=== PATIENT | male | born 1965 | race Caucasian/White ===

== ENCOUNTER 2017-10-12 15:21 | Emergency (ER) | payer MEDICAID ==
[2017-10-12 15:28] VITALS: BMI 33.1
--- NOTE | 2017-10-12 15:44 | DR.WEAKNES ---
HPI - Time Seen Time seen: 15:50 - Primary Care Physician Primary Care Physician: DAVID - HPI Comment HPI Comment: PATIENTS NOTICE RT FACIAL WEAKNESS YESTERDAY. TODAY WEAKNESS IS WORSE. BP ELEVATED. HE DOES NOT TAKE MEDICATIONS. PATIENT HAVE OCCIPITAL HEADACHE GOING DOWN THE NECK SINCE THIS AM. - Complaints Chief Complaint Doctors Comments: RIGHT FACIAL WEAKNESS TIMES ONE DAY. BP ELEVATED. Chief Complaint:: THINKS I HAD A STOKE YESTERDAY 01/10/18, PT STATES "MY FACE WAS DROPPING ON RIGHT SIDE." DENIES WEAKNES TO ANY EXTREMITIES ONLY THE FACIAL DROOPING. PT HAS NOT SEEN A DOCTOR SINCE [facility]. - Reviewed Nurses Notes Reviewed: Yes - Source History Provided: Patient - Mode of Arrival Mode of Arrival: Ambulatory - Timing Onset of Chief Complaint: 10/11/17 Since onset, symptoms are:: Worsened Symptom Onset: Unknown Onset of Symptoms Start Date: 10/11/17 - Duration Duration: Constant Duration: Days - Context Onset: At rest Symptoms: Weakness, Numbness, Diplopia. denies: Slurred Speech, Visual loss, Difficulty talking, Difficulty walking History of: None Stroke Symptoms: None - Location Weakness Location: Normal - Associated Signs and Symptoms Associated Signs and Symptoms: None PMH - PMH Past Medical History: Yes Past Medical History: Hypertension Past Surgical History: Yes Surgical History: Other Past Surgical History Comment: EXPLORATORY OF ABDOMEN - Family History History of Family Medical Conditions: Yes Family Medical History: Cancer, CT, Hypertension - Social History Does patient currently use any type of tobacco product: Yes Have you used tobacco products in the last 12 months: Yes Type of Tobacco Use: Cigarettes How many years tobacco product used: 30 Does any household member use tobacco: Yes Alcohol Use: None Do you use any recreational Drugs:: No Lives With: Family Lives Where: Home - infectious screening In the last 2 months have you had wt loss of >10#?: NO Have you had fever, night sweats or hemotysis?: No Have you traveled outside the country in the last 6 months?: No Isolation: Standard ROS - Review of Systems Constitutional: Fever, Weakness (RIGHT FACE). negative: Chills, Diaphoresis, Fatigue, Loss of Appetite Eyes: Diplopia (RT EYE). negative: Eye Pain, Discharge ENTM: negative: Ear Pain, Nose Discharge, Nose Congestion, Throat Pain Respiratoy: negative: Productive Cough, Non-Productive Cough, Short of Breath, Wheezing, Hemoptysis Cardiovascular: negative: Chest Pain Gastrointestinal/Abdominal: No Symptoms Reported Genitourinary: No Symptoms Reported Neurological: No Symptoms Reported Musculoskeletal: No Symptoms Reported Integumentary: No Symptoms Reported Hematologic/Lymphatic: No Symptoms Reported Endocrine: No Symptoms Reported All Other Systems: Reviewed and Negative PE - Vital Signs Vitals: Temperature 99.7 F Pulse Rate [Right Brachial] 71 Pulse Rate 77 Respiratory Rate 20 Blood Pressure [Right Arm] 178/68 Blood Pressure 230/115 O2 Sat by Pulse Oximetry 96 - General Limitations: No Limitations General Appearance: Alert - Head Head Exam: Normal Inspection Head Exam Physical: Other (NONE) - Eyes Eye exam: PERRL, Other (RIGHT EYE WEAKNESS). negative: Scleral Icterus, Conjunctival Injection, Nystagmus, Periorbital Swelling, Periorbital Tenderness Eyelids: Normal Inspection: Bilateral Pupils: Regular, Round: Bilateral, Reactive: Bilateral Sclera/Conjunctival: Normal Inspection: Bilateral - ENT ENT Exam: Normal External Ear Exam Mouth Exam: Drooling (RT) Throat Exam: Normal Inspection (GAG POSITIVE) - Neck Neck Exam: Trachea Midline. negative: Tenderness, Meningismus, Lymphadenopathy - Chest Chest Inspection: Symmetric Chest Wall Rise, Tenderness - Respiratory Respiratory Exam: Normal Lung Sounds Bilat Respiratory Exam: Bilateral Clear to Auscultation - Cardiovascular Cardiovascular Exam: Regular Rate, Normal Rhythm, Normal Heart Sounds - Abdominal Exam Abdominal Exam: Normal Bowel Sounds, Soft. negative: Tenderness - Extremities Extremities Exam: Normal Inspection, Edema (TRACE). negative: Calf Tenderness - Back Back Exam: Normal Inspection - Neurologic Neurological Exam: Alert, Oriented X3 Cranial Nerve Exam: EOM Function (II, III, IV, ): Normal, Facial Sensation (V) : Normal, Facial Palsy (VII): Normal, Gag reflex (XI): Normal, Spinal Accessory Function (XI): Normal, Tongue Deviation: Normal Motor Strength - LUE: 5/5 Motor Strength - RUE: 5/5 Motor Strength - LLE: 5/5 Motor Strength - RLE: 5/5 Upper Motor Neuron Exam: Babinski Sign: Normal DTR: achilles tendon (L): 4+, achilles tendon (R): 4+, brachioradialis (L): 4+, brachioradialis (R): 4+, Patellar (L): 4+, patellar (R): 4+ - Psychiatric Psychiatric Exam: Normal Affect, Normal Mood - Skin Skin Exam: Normal Color MDM - Additional Information Obtained Additional Information Obtained From: Family - Differential Diagnosis Differential Diagnosis: Moran's Palsey, CVA, Electrolyte Disorder, Mass Lesion, TIA Differential Diagnosis Comment: OCCIPITAL HEADACHE. Course - Treatment Treatment: SEE ORDERS. PATIENT DO NOT WISH TO BE ADMITTED TO HOSPITAL FOR FURTHER MANAGEMENT. D/C AMA. - Education/Counseling Education/Counseling: Patient, Family, Education Educated On: Diagnosis, Needs for Follow Up ROR - Labs Reviewed Laboratory Results Reviewed?: Yes Result Diagrams: 10/12/17 15:54 10/12/17 15:54 Laboratory: WBC 6.4 X10^3/uL (3.6-10.0) 10/12/17 15:54 RBC 5.33 X10^6/uL (4.7-6.0) 10/12/17 15:54 Hgb 13.8 g/dL (13.5-18.0) 10/12/17 15:54 Hct 41.9 % (42.0-54.0) L 10/12/17 15:54 MCV 78.5 fL (80.0-100.0) L 10/12/17 15:54 MCH 25.9 pg (27.0-34.0) L 10/12/17 15:54 MCHC 33.0 g/dL (33.0-35.0) 10/12/17 15:54 RDW 16.0 % (11.6-16.5) 10/12/17 15:54 Plt Count 135 X10^3/uL (150.0-450.0) L 10/12/17 15:54 Plt Count Comment Adequate (ADEQUATE) 10/12/17 15:54 MPV 9.9 fL (7.4-11.0) 10/12/17 15:54 Neut % (Auto) 61.5 % (42.0-75.0) 10/12/17 15:54 Lymph % (Auto) 27.4 % (21.0-51.0) 10/12/17 15:54 Dixon % (Auto) 6.2 % (0.0-13.0) 10/12/17 15:54 Eos % (Auto) 2.7 % (0.9-2.9) 10/12/17 15:54 Baso % (Auto) 2.2 % (0.2-1.0) H 10/12/17 15:54 Neut # (Auto) 3.9 x10^3/uL (2.2-4.8) 10/12/17 15:54 Lymph # (Auto) 1.8 X10^3/uL (1.3-2.9) 10/12/17 15:54 Dixon # (Auto) 0.4 x10^3/uL (0.3-0.8) 10/12/17 15:54 Eos # (Auto) 0.2 x10^3/uL (0.0-0.2) 10/12/17 15:54 Baso # (Auto) 0.1 X10^3/uL (0.0-0.1) 10/12/17 15:54 Absolute Nucleated RBC 0.1 /100WBC 10/12/17 15:54 Plt Morphology Comment Normal (NORMAL) 10/12/17 15:54 RBC Morphology Abnormal (NORMAL) 10/12/17 15:54 Hypochromasia Slight A 10/12/17 15:54 Poikilocytosis Slight A 10/12/17 15:54 INR Target Range - 10/12/17 15:54 INR 0.98 (0.8-1.3) 10/12/17 15:54 APTT 36.7 SECONDS (22.9-36.5) H 10/12/17 15:54 PTT Comment - 10/12/17 15:54 Sodium 144 mmol/L (136-145) 10/12/17 15:54 Corrected Sodium TNP 10/12/17 15:54 Potassium 4.0 mmol/L (3.5-5.1) 10/12/17 15:54 Chloride 107 mmol/L (98-107) 10/12/17 15:54 Carbon Dioxide 28.4 mmol/L (21-32) 10/12/17 15:54 BUN 32 mg/dL (7-18) H 10/12/17 15:54 Creatinine 1.66 mg/dL (0.70-1.30) H 10/12/17 15:54 Est GFR (MDRD) Af Amer 56 (>60) L 10/12/17 15:54 Est GFR (MDRD) Non-Af 47 (>60) L 10/12/17 15:54 Glucose 87 mg/dL (65-99) 10/12/17 15:54 Calcium 8.5 mg/dL (8.5-10.1) 10/12/17 15:54 Corrected Calcium TNP 10/12/17 15:54 Magnesium 2.5 mg/dL (1.7-2.9) 10/12/17 15:54 Total Bilirubin 0.20 mg/dL (0.2-1.0) 10/12/17 15:54 AST 20 Units/L (15-37) 10/12/17 15:54 ALT 15 Units/L (12-78) 10/12/17 15:54 Alkaline Phosphatase 69 Units/L (46-116) 10/12/17 15:54 Creatine Kinase 233 Units/L (39-308) 10/12/17 15:54 CK-MB (CK-2) 3.3 ng/mL (0-4.0) 10/12/17 15:54 CK/CKMB % Calc 1.4 % (<4) 10/12/17 15:54 Troponin I 0.08 ng/mL (0-1.5) 10/12/17 15:54 Total Protein 7.8 g/dL (6.4-8.2) 10/12/17 15:54 Albumin 4.0 g/dL (3.4-5.0) 10/12/17 15:54 Globulin 3.8 g/dL (2.5-4.5) 10/12/17 15:54 Albumin/Globulin Ratio 1.1 Ratio (1.1-2.1) 10/12/17 15:54 Triglycerides 176 mg/dL (0-150) H 10/12/17 15:54 Cholesterol 207 mg/dL (0-200) H 10/12/17 15:54 LDL Cholesterol, Calc 142 mg/dL (0-100) H 10/12/17 15:54 HDL Cholesterol 30 mg/dL (40-60) L 10/12/17 15:54 Cholesterol/HDL Ratio 6.9 (0.0-5.0) H 10/12/17 15:54 Specimen Type Clean catch urine 10/12/17 17:18 Urine Color Yellow (YELLOW) 10/12/17 17:18 Urine Appearance Clear (CLEAR) 10/12/17 17:18 Urine pH 7.0 (5.0 - 8.0) 10/12/17 17:18 Ur Specific [place] 1.010 (1.000-1.030) 10/12/17 17:18 Urine Protein 2+ (NEGATIVE) 10/12/17 17:18 Urine Glucose (UA) Negative (NEGATIVE) 10/12/17 17:18 Urine Ketones Negative (NEGATIVE) 10/12/17 17:18 Urine Occult Blood 1+ (NEGATIVE) 10/12/17 17:18 Urine Nitrite Negative (NEGATIVE) 10/12/17 17:18 Urine Bilirubin Negative (NEGATIVE) 10/12/17 17:18 Urine Urobilinogen Normal (NORMAL) 10/12/17 17:18 Ur Leukocyte Esterase Negative (NEGATIVE) 10/12/17 17:18 Urine RBC 0-2 /HPF (NONE SEEN) 10/12/17 17:18 Urine WBC None seen /HPF (NONE SEEN) 10/12/17 17:18 Ur Squamous Epith Cells Negative /HPF (NEGATIVE) 10/12/17 17:18 Amorphous Sediment Trace /HPF (NEGATIVE) 10/12/17 17:18 Urine Bacteria Trace /HPF (NEGATIVE) 10/12/17 17:18 Ur Culture Indicated? No/not indicated 10/12/17 17:18 - XRAY XRAY Interpreted by: Radiologist XRAY Findings: REPORT DISCUSS WITH PATIENT. - Diagnosis Discharge Problem: Facial weakness, Abnormal cardiac enzyme level, Occipital headache - Discharge Plan Disposition: 07 AGAINST MEDICAL ADVICE Condition: Stable - Follow ups/Referrals Follow ups/Referrals: [facility],None [Primary Care Provider] - 3 days Leonides Talavera [STAFF PHYSICIAN] - 10/13/17 - Instructions Additional Instructions: RETURN TO ED WISH.
[2017-10-12 16:03] LABS: BASOPHILS # (AUTO) 0.1 X10^3/uL (0.0-0.1); BASOPHILS % (AUTO) 2.2 % (0.2-1.0); EOSINOPHILS # (AUTO) 0.2 x10^3/uL (0.0-0.2); EOSINOPHILS % (AUTO) 2.7 % (0.9-2.9); HEMATOCRIT 41.9 % (42.0-54.0); HEMOGLOBIN 13.8 g/dL (13.5-18.0); LYMPHOCYTES # (AUTO) 1.8 X10^3/uL (1.3-2.9); LYMPHOCYTES % (AUTO) 27.4 % (21.0-51.0); MEAN CORPUSCULAR HEMOGLOBIN 25.9 pg (27.0-34.0); MEAN CORPUSCULAR VOLUME 78.5 fL (80.0-100.0); MEAN PLATELET VOLUME 9.9 fL (7.4-11.0); MONOCYTES # (AUTO) 0.4 x10^3/uL (0.3-0.8); MONOCYTES % (AUTO) 6.2 % (0.0-13.0); NEUTROPHILS # (AUTO) 3.9 x10^3/uL (2.2-4.8); NEUTROPHILS % (AUTO) 61.5 % (42.0-75.0); PLATELET COUNT 135 X10^3/uL (150.0-450.0); RED BLOOD COUNT 5.33 X10^6/uL (4.7-6.0); WHITE BLOOD COUNT 6.4 X10^3/uL (3.6-10.0)
[2017-10-12 16:14] LABS: HYPOCHROMASIA SLIGHT; PLATELET MORPHOLOGY COMMENT NORMAL (NORMAL); POIKILOCYTOSIS SLIGHT
[2017-10-12 16:23] LABS: BLOOD UREA NITROGEN 32 mg/dL (7-18); CALCIUM 8.5 mg/dL (8.5-10.1); CARBON DIOXIDE 28.4 mmol/L (21-32); CHLORIDE 107 mmol/L (98-107); CREATININE 1.66 mg/dL (0.70-1.30); SODIUM 144 mmol/L (136-145); TROPONIN I 0.08 ng/mL (0-1.5); eGFR BLACK RACES 56 (>60); eGFR NON BLACK RACES 47 (>60)
--- NOTE | 2017-10-12 16:26 | RAD ---
Chest, AP portable Indication: Right-sided facial droop, hypertension Comparison: None Findings: Cardiac silhouette is within normal limits. The lungs are grossly clear without dense infil trate or pleural effusion. Impression: No acute chest process. Reported By:
[2017-10-12 16:27] LABS: ALANINE AMINOTRANSFERASE 15 Units/L (12-78); ALKALINE PHOSPHATASE 69 Units/L (46-116); ASPARTATE AMINO TRANSFERASE 20 Units/L (15-37); CHOL/HDL RATIO 6.9 (0.0-5.0); CHOLESTEROL 207 mg/dL (0-200); CKMB % 1.4 % (<4); CREATINE KINASE 233 Units/L (39-308); CREATINE KINASE MB 3.3 ng/mL (0-4.0); HDL CHOLESTEROL 30 mg/dL (40-60); MAGNESIUM 2.5 mg/dL (1.7-2.9); TOTAL PROTEIN 7.8 g/dL (6.4-8.2); TRIGLYCERIDES 176 mg/dL (0-150)
--- NOTE | 2017-10-12 16:29 | CT ---
HISTORY: Right-sided facial droop onset yesterday, hypertension Study: CT brain without contrast Comparison: None Technique: Multiple axial images of the brain were obtained from the skull base to the vertex without administra tion of IV contrast. Dose reduction techniques including Automated Exposure Control (AEC) and adjust ment of mA and kV were utilized. Findings: Nonspecific scattered subcortical and periventricular white matter hypodensities are present suggesti ve of microvascular ischemic changes. No evidence of acute hemorrhage, midline shift, mass effect or abnormal extra-axial fluid collection. The ventricular system is symmetric and nondilated. The sof t tissues and osseous structures are unremarkable. The visualized paranasal sinuses are clear. IMPRESSION: 1. Nonspecific white matter hypodensities as described suggesting chronic microvascular ischemic marte ges. No acute intracranial abnormality is identified however there is strong clinical concern for acu te ischemia MRI can be performed for further evaluation. Reported By:
[2017-10-12 16:32] VITALS: BP 178/68
[2017-10-12 17:34] LABS: BILIRUBIN,URINE NEGATIVE (NEGATIVE); BLOOD/HEMOGLOBIN,URINE 1+ (NEGATIVE); GLUCOSE, URINE NEGATIVE (NEGATIVE); KETONES,URINE NEGATIVE (NEGATIVE); LEUKOCYTE ESTERASE ,URINE NEGATIVE (NEGATIVE); NITRITES,URINE NEGATIVE (NEGATIVE); PROTEIN,URINE 2+ (NEGATIVE); UROBILINOGEN,URINE NORMAL (NORMAL)
[2017-10-12 17:42] LABS: AMORPHOUS SEDIMENT,UR TRACE /HPF (NEGATIVE); APPEARANCE,URINE CLEAR (CLEAR); BACTERIA,URINE TRACE /HPF (NEGATIVE); COLOR,URINE YELLOW (YELLOW); RBC,URINE 0-2 /HPF (NONE SEEN); SQUAMOUS EPITHELIAL CELL,UR NEGATIVE /HPF (NEGATIVE)
== END 2017-10-12 17:41 | disposition left against medical advice (07) ==
LOC: ER 15:38
DX: R29.810 Facial weakness (principal); R74.8 Abnormal levels of other serum enzymes; R51 Headache; R94.31 Abnormal electrocardiogram [ECG] [EKG]
CPT/HCPCS: 36415; 70450; 71045; 80053; 80061; 81001; 82550; 82553; 83735; 84484; 85025; 85610; 85730; 93005; 93010; 99283; 99285